=== PATIENT | female | born 1975 | race Two or more races ===

== ENCOUNTER 2018-11-14 00:39 | Emergency (ER) | payer OTHER ==
[~2018-11-14] VITALS: Ht 162.6 cm; Wt 93.4 kg
[~2018-11-14 00:39] MED LIST: MACROBID 100 M100 MG
[2018-11-14] MEDS ORDERED: PULMICORT1 MG/2 ML IH (04:25)
[2018-11-14] MEDS ORDERED: ALBUTEROL2.5 MG/3 M IH (04:25)
== END 2018-11-14 04:34 | disposition home or self-care (01) ==
LOC: ER 00:39
DX: J20.9 Acute bronchitis, unspecified (principal)

== ENCOUNTER 2021-05-24 13:05 | Outpatient (CLI) | payer OTHER ==
[~2021-05-24 13:05] MED LIST changes: +ALBUTEROL2.5 MG/3 M IH; +PULMICORT1 MG/2 ML IH
== END 2021-05-24 13:09 | disposition home or self-care (01) ==
LOC: RAD 13:05
PROVIDERS: ATTEND Physical Medicine & Rehabilitation
DX: M21.70 Unequal limb length (acquired), unspecified site (principal); M41.87 Other forms of scoliosis, lumbosacral region

== ENCOUNTER 2021-07-11 15:12 | Outpatient (CLI) | payer OTHER | END 2021-07-11 18:33 | disposition home or self-care (01) | LOC: LAB 15:12 | DX: Z20.822 Contact with and (suspected) exposure to COVID-19 (principal); Z03.818 Encounter for observation for suspected exposure to other biological agents ruled out ==

== ENCOUNTER 2023-11-11 08:46 | Emergency (ER) | payer OTHER ==
[~2023-11-11] VITALS: Ht 162.6 cm; Wt 95.3 kg
[2023-11-11 10:37] LABS: HEMOGLOBIN 14.6 g/dL (12.0-15.00); MEAN CORPUSCULAR HEMOGLOBIN 31.6 pg (27.00-32.0); MEAN CORPUSCULAR HGB CONC 34.8 g/dl (32.0-36.0); PLATELET COUNT 290 K/uL (150-450); RED BLOOD COUNT 4.62 M/uL (4.00-6.00); RED CELL DISTRIBUTION WIDTH 12.7 % (11.5-14.5)
[2023-11-11 10:56] LABS: ALBUMIN 4.1 gm/dL (3.4-5.0); BILIRUBIN TOTAL 0.34 mg/dL (0.3-1.2); CALCIUM 9.8 mg/dL (8.5-10.1); CREATININE SERUM 0.73 mg/dL (0.55-1.02); GFR 85.83; POTASSIUM 4.09 mEq/L (3.5-5.1); TOTAL PROTEIN 8.1 gm/dL (6.4-8.2)
[2023-11-11 11:01] LABS: PH,URINE 5.5 (5.0-8.0); URINE APPEARANCE Clear; URINE BILIRRUBIN Negative (NEGATIVE); URINE BLOOD Trace; URINE COLOR Yellow; URINE GLUCOSE Negative (NEGATIVE); URINE LEUKOCYTE Moderate; URINE NITRATE Negative; URINE PROTEIN Negative (NEGATIVE); URINE UROBILINOGEN 0.2 E.U./dl
[2023-11-11 11:07] LABS: URINE BACTERIA 550.4 uL (0.0-1933); URINE EPITHELIAL CELLS 45.1 uL (0.0-38.8); URINE WBC 125.8 uL (0.0-23.2)
[2023-11-11 11:14] LABS: INR 1.02; PARTIAL THROMBOPLASTIN TIME 30.5 SECONDS (22.0-34.0); PROTHROMBIN TIME 10.7 SECONDS (9.0-11.5)
[2023-11-11] MEDS ORDERED: NITROFURANTOIN100 MG PO (12:46)
[2023-11-11] MEDS ORDERED: DICLOFENAC SODI75 MG PO (12:46)
== END 2023-11-11 13:00 | disposition home or self-care (01) ==
LOC: ER 08:46
PROVIDERS: General Practice
DX: R10.31 Right lower quadrant pain (principal); K57.30 Diverticulosis of large intestine without perforation or abscess without bleeding; Z88.8 Allergy status to other drugs, medicaments and biological substances

== ENCOUNTER 2024-10-13 05:15 | Day surgery (SDC) | payer OTHER ==
[2024-10-05 08:38] VITALS: BP 105/74
[2024-10-05 08:42] LABS: HEMATOCRIT 37.8 % (36.0-45.00); HEMOGLOBIN 12.9 g/dL (12.0-15.00); MEAN CELL VOLUME 91.9 fL (80.00-100.00); MEAN CORPUSCULAR HEMOGLOBIN 31.4 pg (27.00-32.0); MEAN CORPUSCULAR HGB CONC 34.1 g/dl (32.0-36.0); PLATELET COUNT 268 K/uL (150-450); RED BLOOD COUNT 4.11 M/uL (4.00-6.00); RED CELL DISTRIBUTION WIDTH 13.6 % (11.5-14.5)
[2024-10-05 09:46] LABS: ALBUMIN 3.7 gm/dL (3.4-5.0); BILIRUBIN TOTAL 0.38 mg/dL (0.3-1.2); CALCIUM 9.3 mg/dL (8.5-10.1); CREATININE SERUM 0.6 mg/dL (0.55-1.02); GFR 107.16; GLOBULINA 3.2 G/DL (2.4-3.5); POTASSIUM 4.77 mEq/L (3.5-5.1); TOTAL PROTEIN 6.9 gm/dL (6.4-8.2)
[2024-10-05 09:55] LABS: RH POSITIVE
[2024-10-05 10:44] LABS: PARTIAL THROMBOPLASTIN TIME 26.6 SECONDS (22.0-34.0); PROTHROMBIN TIME 10.9 SECONDS (9.0-11.5)
[~2024-10-13] VITALS: Ht 162.6 cm; Wt 78.0 kg
[~2024-10-13 05:15] MED LIST changes: +DICLOFENAC SODI75 MG PO; +MAGNESIUM400 MG; +NITROFURANTOIN100 MG PO; +PROMETRIUM200 MG PO; +VITAMIN D
[2024-10-13] MEDS ORDERED: POVIDONE-IODINE 118 ML BOTT TOP ONE (10:45)
[2024-10-13] MEDS ORDERED: CEFAZOLIN SODIUM 1,000 MG VIAL IV ONE (10:45)
[2024-10-13] MEDS ORDERED: HEMOSTATIC MATRIX 1 KIT KIT TOP ONE (12:15)
[2024-10-13] MEDS ORDERED: SURGIFLO APPLICATOR 1 EACH APPL TOP ONE (12:30)
[2024-10-13] MEDS ORDERED: SUGAMMADEX SODIUM 200 MG/2 ML VIAL IV ONE (12:45)
[2024-10-13] MEDS ORDERED: IBU800 MG PO (13:19)
[2024-10-13] MEDS ORDERED: KETOROLAC TROMETHAMINE 60 MG VIAL IM STA (13:29)
[2024-10-13] MEDS ORDERED: RINGERS SOLUTION,LACTATED 1,000 ML IV SCH (13:30)
[2024-10-13] MEDS ORDERED: MORPHINE SULFATE 4 MG/ML VIAL IV ONE ×2 (13:35→14:05)
[2024-10-13] MEDS ORDERED: KETOROLAC TROMETHAMINE 30 MG VIAL IU ONE (14:30)
== END 2024-10-13 16:50 | disposition home or self-care (01) ==
LOC: CIR.AMB 05:15
PROVIDERS: ATTEND Student in an Organized Health Care Education/Training Program
DX: N80.123 Deep endometriosis of bilateral ovaries (principal); N80.01 Superficial endometriosis of the uterus; K68.2 Retroperitoneal fibrosis; N80.311 Superficial endometriosis of the anterior cul-de-sac; D25.2 Subserosal leiomyoma of uterus; N80.03 Adenomyosis of the uterus; N80.122 Deep endometriosis of left ovary; R10.2 Pelvic and perineal pain; R30.0 Dysuria; N80.42 Endometriosis of rectovaginal septum with involvement of vagina; Z88.6 Allergy status to analgesic agent; Z88.5 Allergy status to narcotic agent

== ENCOUNTER 2024-10-31 16:18 | Emergency (ER) | payer OTHER ==
[~2024-10-31] VITALS: Ht 162.6 cm; Wt 79.4 kg
[~2024-10-31 16:18] MED LIST changes: +IBU800 MG PO
[2024-10-31] MEDS ORDERED: [UNRECOGNIZED DRUG - OTHER] SUBCUTANEO (17:15)
[2024-10-31] MEDS ORDERED: ONDANSETRON HCL 2 MG/ML VIAL IM ONE (17:30)
[2024-10-31] MEDS ORDERED: FAMOtidine 10 MG/ML (4ML VIAL) IV PUSH ONE (17:30)
[2024-10-31] MEDS ORDERED: ONDANSETRON HCL 2 MG/ML VIAL ONE (18:22)
[2024-10-31] MEDS ORDERED: FAMOTIDINE/PF 20 MG/2 ML VIAL ONE (18:22)
[2024-10-31] MEDS ORDERED: ZOFRAN8 MG PO (19:13)
[2024-10-31] MEDS ORDERED: PEPCID AC20 MG PO (19:13)
== END 2024-10-31 19:16 | disposition home or self-care (01) ==
LOC: ER 16:20
DX: K29.70 Gastritis, unspecified, without bleeding (principal)